=== PATIENT | female | born 1955 | race Asian ===

== ENCOUNTER 2022-01-25 01:43 | Emergency (ER) | payer OTHER ==
[~2022-01-25] VITALS: Ht 172.7 cm; Wt 103.4 kg
[2022-01-25 02:45] VITALS: BP 154/64; TEMP 98.7
== END 2022-01-25 02:45 | disposition home or self-care (01) ==
LOC: ED 01:43
DX: J02.9 Acute pharyngitis, unspecified (principal); J04.0 Acute laryngitis
CPT/HCPCS: 36415; 87651; 99283

== ENCOUNTER 2022-04-16 04:36 | Emergency (ER) | payer OTHER ==
[~2022-04-16] VITALS: Ht 172.7 cm; Wt 103.4 kg
[2022-04-16 05:54] VITALS: BP 136/68; TEMP 98.5
== END 2022-04-16 05:54 | disposition home or self-care (01) ==
LOC: ED 04:36
DX: S50.861A Insect bite (nonvenomous) of right forearm, initial encounter (principal); S70.362A Insect bite (nonvenomous), left thigh, initial encounter; S90.862A Insect bite (nonvenomous), left foot, initial encounter; W57.XXXA Bitten or stung by nonvenomous insect and other nonvenomous arthropods, initial encounter; Y92.89 Other specified places as the place of occurrence of the external cause
CPT/HCPCS: 96372; 99283; J1885; J2930